=== PATIENT | male | born 1975 | race Caucasian/White ===

== ENCOUNTER → 2016-11-28 | Outpatient (CLI) | payer OTHER ==
--- NOTE | 2016-11-28 10:32 | Diagnostic Imaging Report ---
EXAMINATION: Two views of the sternum. INDICATION: Fall. FINDINGS: The oblique view is limited. There is no obvious displaced fracture seen. IMPRESSION: No definite displaced fracture is seen. Dictated by: Dictated on workstation # [id number]
== END ==
LOC: RAD 09:58
PROVIDERS: ATTEND Nurse Practitioner Family
DX: S29.9XXA Unspecified injury of thorax, initial encounter (principal); R07.1 Chest pain on breathing; W19.XXXA Unspecified fall, initial encounter; Y99.8 Other external cause status
CPT/HCPCS: 71120